=== PATIENT | male | born 1970 | race American Indian/Alaskan Native ===

== ENCOUNTER 2017-03-21 11:23 | Emergency (ER) | payer BC ==
[2017-03-21 11:36] VITALS: BMI 27.7
--- NOTE | 2017-03-21 11:45 | ED PDOC ---
Arrival/HPI - General Chief Complaint: Upper Extremity Problem/Injury Time Seen by Provider: 03/21/17 11:30 Historian: Patient - History of Present Illness Narrative History of Present Illness (Text): 03/21/17 11:39 A 46 year old male, who denies any past medical history, presents to the emergency department complaining of left arm pain since this morning. Patient reports he woke up at 05:00 with pain radiating from his left upper shoulder down to his elbow. Patient went to see his chiropractor who instructed him to come into the emergency room for further evaluation. Patient notes the pain is worse with movement. 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 Patient denies any trauma, injury, weakness, numbness, fever, chills, nausea, vomiting, abdominal pain, chest pain, shortness of breath or any other complaints. PMD: Dr. Hannah Time/Duration: Other (This morning at 05:00) Symptom Onset: Sudden Symptom Course: Unchanged Quality: Other Context: Home Past Medical History - Provider Review Nursing Documentation Reviewed: Yes - Infectious Disease Hx of Infectious Diseases: None - Psychiatric Hx Substance Use: No - Anesthesia Hx Anesthesia: No Family/Social History - Physician Review Nursing Documentation Reviewed: Yes Family/Social History: No Known Family HX Smoking Status: Never Smoked Hx Alcohol Use: Yes Frequency of alcohol use: Socially Hx Substance Use: No Allergies/Home Meds Allergies/Adverse Reactions: Allergies No Known Allergies Allergy (Verified 03/21/17 11:36) Review of Systems - Physician Review All systems were reviewed & negative as marked: Yes - Review of Systems Constitutional: absent: Fevers, Night Sweats Respiratory: absent: SOB Cardiovascular: absent: Chest Pain Gastrointestinal: absent: Abdominal Pain, Nausea, Vomiting Musculoskeletal: Other (Left arm pain, from upper shoulder to elbow) Neurological: absent: Focal Weakness (/numbness) Physical Exam Vital Signs Reviewed: Yes Vital Signs Temp Pulse Resp BP Pulse Ox 03/21/17 11:49 71 16 164/77 H 98 03/21/17 11:44 98 F 86 15 164/77 H 96 Temperature: Afebrile Blood Pressure: Hypertensive Pulse: Regular Respiratory Rate: Normal Appearance: Positive for: Well-Appearing, Non-Toxic, Uncomfortable Mental Status: Positive for: Alert and Oriented X 3 - Systems Exam Head: Present: Atraumatic, Normocephalic Pupils: Present: PERRL Extroacular Muscles: Present: EOMI Conjunctiva: Present: Normal Mouth: Present: Moist Mucous Membranes Pharnyx: No: ERYTHEMA, EXUDATE, TONSILS ENLARGED Neck: Present: Normal Range of Motion Respiratory/Chest: Present: Clear to Auscultation, Good Air Exchange. No: Respiratory Distress, Accessory Muscle Use Cardiovascular: Present: Regular Rate and Rhythm, Normal S1, S2. No: Murmurs Abdomen: Present: Normal Bowel Sounds. No: Tenderness, Distention, Peritoneal Signs Back: Present: Normal Inspection Upper Extremity: Present: Normal Inspection, Normal ROM (with pain in left upper arm), NORMAL PULSES, Tenderness (to left trapezius, deltoid, tricep and bicep muscles), Neurovascularly Intact. No: Cyanosis, Edema, Swelling, Temperature Abnormalties, Deformity Lower Extremity: Present: Normal Inspection, NORMAL PULSES, Normal ROM (with pain), Neurovascularly Intact. No: Edema Neurological: Present: GCS=15, CN II-XII Intact, Speech Normal, Motor Func Grossly Intact, Normal Sensory Function, Normal Cerebellar Funct, Gait Normal, Memory Normal Skin: Present: Warm, Dry, Normal Color. No: Rashes Psychiatric: Present: Alert, Oriented x 3, Normal Insight, Normal Concentration Medical Decision Making ED Course and Treatment: 03/21/17 11:59 EKG shows NSR at 72 BPM with normal axis, normal intervals, no acute ischemia. Interpreted by me. Report Date : 03/21/2017 13:48:34 PROCEDURE: Radiographs of the Left Shoulder Dictator : Brijesh Mo MD IMPRESSION: Normal radiographs of the left shoulder. 03/21/17 14:22 On re-evaluation, patient feels better and and states his pain has completely resolved. Range of motion in shoulder remains normal without any pain. I have discussed the results and plan with the patient, who expresses understanding. Patient in agreement with plan to be discharged home. Patient is stable for discharge. Patient was instructed to follow up with physician or return if symptoms worsen or new concerning symptoms arise. - RAD Interpretation Radiology Orders: 03/21/17 11:44 SHOULDER LEFT [RAD] Stat - Medication Orders Current Medication Orders: Discontinued Medications Cyclobenzaprine HCl (Flexeril) 10 mg PO STAT STA Stop: 03/21/17 11:45 Last Admin: 03/21/17 11:56 Dose: 10 mg Ketorolac Tromethamine (Toradol) 15 mg IM STAT STA Stop: 03/21/17 11:40 Last Admin: 03/21/17 11:56 Dose: 15 mg - Scribe Statement The provider has reviewed the documentation as recorded by the Ivana Cuellar Provider Scribe Attestation: All medical record entries made by the Scribe were at my direction and personally dictated by me. I have reviewed the chart and agree that the record accurately reflects my personal performance of the history, physical exam, medical decision making, and the department course for this patient. I have also personally directed, reviewed, and agree with the discharge instructions and disposition. Disposition/Present on Arrival - Present on Arrival Any Indicators Present on Arrival: No History of DVT/PE: No History of Uncontrolled Diabetes: No Urinary Catheter: No History of Decub. Ulcer: No History Surgical Site Infection Following: None - Disposition Have Diagnosis and Disposition been Completed?: Yes Diagnosis: Arm pain Disposition: HOME/ ROUTINE Disposition Time: 14:22 Patient Problems: Current Active Problems Problem Status Onset Arm pain Acute Condition: IMPROVED Additional Instructions: Please follow up with your doctor. Return to the ER for any worsening symptoms or for any other concerns. Prescriptions: Naproxen [Naprosyn] 500 mg PO Q12H PRN #10 tablet PRN Reason: Pain, Moderate (4-7) Referrals: Criss Hannah DO [Primary Care Provider] - Follow up with primary Forms: [employer] Connect (Faroese)
[2017-03-21 11:55] VITALS: TEMP 98; O2SAT 98
--- NOTE | 2017-03-21 13:50 | RAD ---
PROCEDURE: Radiographs of the Left Shoulder HISTORY: pain COMPARISON: No prior. FINDINGS: BONES: Normal. No fracture. JOINTS: Normal. Glenohumeral and acromioclavicular joints preserved. No osteoarthritis. SOFT TISSUES: Normal. OTHER FINDINGS: None. IMPRESSION: Normal radiographs of the left shoulder.
[2017-03-21 14:30] VITALS: BP 157/94; PULSE 67; RESP 15
--- NOTE | 2017-03-21 23:32 | CARD ---
APPROVED REPORT EKG Measurement Heart [id number] <Conclusion> Normal sinus rhythm Minimal voltage criteria for LVH, may be normal variant Borderline ECG
== END 2017-03-21 14:31 | disposition home or self-care (01) ==
LOC: ED 11:23
DX: M79.602 Pain in left arm (principal)
CPT/HCPCS: 73030; 93005; 96372; 99284; J1885

== ENCOUNTER 2018-10-13 12:10 | Emergency (ER) | payer BC ==
[2018-10-13 12:11] VITALS: BMI 27.7
[2018-10-13 12:15] VITALS: BP 139/93; PULSE 83; RESP 16; TEMP 98.6; O2SAT 98
--- NOTE | 2018-10-13 12:39 | ED PDOC ---
Arrival/HPI - General Chief Complaint: Dental Pain Time Seen by Provider: 10/13/18 12:11 Historian: Patient - History of Present Illness Narrative History of Present Illness (Text): 10/13/18 12:35 48-year-old male presents today with left lower dental pain and swelling that started today. Patient states he has never seen a dentist in the past. He denies trismus or drooling no fevers or chills. He is complaining of pain and swelling to the left lower cheek/gums. No medications have been taken for pain at home. No other complaints Past Medical History - Provider Review Nursing Documentation Reviewed: Yes - Travel History Have you recently traveled outside [place] w/in the past 3 mons?: No - Infectious Disease Hx of Infectious Diseases: None - Cardiac Hx Cardiac Disorders: No - Pulmonary Hx Respiratory Disorders: No - Neurological Hx Neurological Disorder: No - HEENT Hx HEENT Disorder: No - Renal Hx Renal Disorder: No - Endocrine/Metabolic Hx Endocrine Disorders: No - Hematological/Oncological Hx Blood Disorders: No - Integumentary Hx Dermatological Disorder: No - Musculoskeletal/Rheumatological Hx Musculoskeletal Disorders: Yes - Gastrointestinal Hx Gastrointestinal Disorders: No - Genitourinary/Gynecological Hx Genitourinary Disorders: No - Psychiatric Hx Psychophysiologic Disorder: No Hx Substance Use: No - Surgical History Hx Orthopedic Surgery: Yes (R KNEE, SHOULDER) - Anesthesia Hx Anesthesia: No Family/Social History - Physician Review Nursing Documentation Reviewed: Yes Family/Social History: Unknown Family HX Smoking Status: Never Smoked Hx Alcohol Use: Yes Hx Substance Use: No Allergies/Home Meds Allergies/Adverse Reactions: Allergies No Known Allergies Allergy (Verified 10/13/18 12:11) Review of Systems - Review of Systems Constitutional: absent: Fatigue ENT: Other (left lower dental fracture). absent: Sore Throat, Sinus Congestion Respiratory: absent: SOB, Cough Cardiovascular: absent: Chest Pain, Palpitations Gastrointestinal: absent: Abdominal Pain, Nausea, Vomiting Skin: absent: Rash, Pruritis Psychiatric: absent: Anxiety, Depression Physical Exam Vital Signs Reviewed: Yes Vital Signs Temp Pulse Resp BP Pulse Ox 10/13/18 12:12 98.6 F 83 16 139/93 H 98 Temperature: Afebrile Blood Pressure: Hypertensive Pulse: Regular Respiratory Rate: Normal Appearance: Positive for: Well-Appearing, Non-Toxic, Comfortable Pain Distress: None Mental Status: Positive for: Alert and Oriented X 3 - Systems Exam Head: Present: Atraumatic, Swelling (minimal swelling to the left lower cheek) Conjunctiva: Present: Normal Ears: Present: Normal, NORMAL TM Mouth: Present: Moist Mucous Membranes, Normal Tounge. No: Drooling, Trismus, Normal Lips, Normal Teeth (multiple dental fractures to left lower molars; + edema and tenderness noted to the left lower gingiva over the 19th tooth.) Pharnyx: Present: Normal. No: ERYTHEMA, EXUDATE, TONSILS ENLARGED, Peritonsilar Swelling, Uvular Deviation, Muffled/Hoarse Voice Nose (External): Present: Atraumatic Nose (Internal): Present: Normal Inspection Neck: Present: Normal Range of Motion, Trachea Midline. No: Lymphadenopathy Respiratory/Chest: Present: Clear to Auscultation, Good Air Exchange. No: Respiratory Distress, Accessory Muscle Use Cardiovascular: Present: Regular Rate and Rhythm, Normal S1, S2. No: Murmurs Medical Decision Making ED Course and Treatment: 10/13/18 12:35 Patient is nontoxic well-appearing in no distress with stable vital signs No trismus or drooling, moist mucous membranes clindamycin toradol IM I advised follow-up with the dentist within the next 2 days. I advised immediate return is symptoms worsen persist or if new concerning symptoms develop Patient verbalizes understanding of discharge instructions and need for immediate followup. Impression: Toothache, dental abscess Motrin every 6 hours as needed for pain Clindamycin 1 tablet 3 times daily 7 days Follow-up with the dentist within the next 2 days Follow-up with a primary care physician within the next 2 days Return immediately if symptoms worsen persist or if new concerning symptoms develop [facility] [address] [place] [address] [place] [address] [phone] Disposition/Present on Arrival - Present on Arrival Any Indicators Present on Arrival: No History of DVT/PE: No History of Uncontrolled Diabetes: No Urinary Catheter: No History of Decub. Ulcer: No History Surgical Site Infection Following: None - Disposition Have Diagnosis and Disposition been Completed?: Yes Diagnosis: Dental abscess Disposition: HOME/ ROUTINE Disposition Time: 12:33 Patient Plan: Discharge Condition: GOOD Discharge Instructions (ExitCare): Tooth Abscess (DC), Dental Pain (DC) Additional Instructions: Motrin every 6 hours as needed for pain Clindamycin 1 tablet 3 times daily 7 days Follow-up with the dentist within the next 2 days Follow-up with a primary care physician within the next 2 days Return immediately if symptoms worsen persist or if new concerning symptoms develop [facility] [address] [facility] [phone] [address] [place], [place] [phone] Prescriptions: Clindamycin [Cleocin] 300 mg PO TID #21 cap Ibuprofen [Motrin] 600 mg PO Q6H PRN #20 tab PRN Reason: pain/fever reduction Referrals: Colby Lorenzo DMD [Staff Provider] - Follow up with primary Manuel Arguelles DMD [Non-Staff] - Follow up with primary Edel Chávez MD [Medical Doctor] - Follow up with primary [employer] [Outside] - Follow up with primary Forms: [employer] (Welsh), WORK NOTE
== END 2018-10-13 13:10 | disposition home or self-care (01) ==
LOC: ED 12:10
DX: K04.7 Periapical abscess without sinus (principal)
CPT/HCPCS: 96372; 99282; J1885